=== PATIENT | female | born 1990 | race Caucasian/White ===

== ENCOUNTER 2017-06-27 22:27 | Emergency (ER) | payer MEDICAID ==
--- NOTE | 2017-06-28 01:08 | ER Physician Documentation ---
DATE OF SERVICE: HISTORY OF PRESENT ILLNESS: A 26-year-old female patient. The patient is full code. No known allergy. The patient came to the hospital because of lockjaw and she does not have any complaints except for pain because of the long jaw. REVIEW OF SYSTEMS: A 12-point review of system was reviewed, essentially benign and negative. No heart problems, no lung problems. No pneumonia, no TB, no blood clots. No heart problems, no chest pain, no myocardial infarction, no GI problems, no urinary problems, no endocrine problem. No bones and joints problems. Constitutional symptoms are absent and 12-point review of system as well as cancer, ear, nose, throat, fever, chills or rigors, etc. are all negative. PHYSICAL EXAMINATION: GENERAL: Showed that her jaw was locked. Otherwise, eyes was normal, conjunctivae are pink, sclerae are white. HEENT: Normal. Lockjaw. Carotids were normal. CHEST: Clear. Trachea being central. Fairly good air entry in both lungs without any rales, rhonchi, or bronchial breathing. ABDOMEN: Soft, benign and negative. CENTRAL NERVOUS SYSTEM: Normal. CLINICAL IMPRESSION: The patient came with lockjaw and pain. I unlocked the jaw, and gave 400 mg Motrin to relieve the pain if she needs any more pain killers she can buy this Motrin [id number]. Otherwise, she does not need anything acutely to be done. She should inform her physician that she had lockjaw and the lockjaw was unlocked by the ER doctors. If there is anything to be done surgically to prevent the future locking of the jaw that could be done surgically by the orthopedic physician as needed. Sometimes may just need to be taking some anti-inflammatory medication and if surgically anything could be done that should be done. JOB# [id number]
== END 2017-06-28 00:20 | disposition home or self-care (01) ==
LOC: ER 22:27
DX: R68.84 Jaw pain (principal)